=== PATIENT | female | born 1975 | race Caucasian/White ===

== ENCOUNTER → 2022-01-03 | Outpatient (CLI) | payer BC ==
--- NOTE | 2022-01-03 10:30 | Diagnostic Imaging Report ---
PROCEDURE: MRI left joint lower extremity without contrast. TECHNIQUE: Multiplanar, multisequence non contrast-enhanced MRI of the left lower extremity was accomplished. INDICATION: Posterior tibial tendinitis. COMPARISONS: None available. FINDINGS: TENDONS: Achilles is intact. Peroneus longus and brevis tendon are normal. Posterior tibialis tendon has mild tenosynovitis with thickening at its insertion on the navicular. The majority of the posterior tibialis tendon appears to remain intact. Anterior tibialis, extensor hallucis longus and extensor digitorum longus are intact. LIGAMENTS: Anterior and posterior distal tibiofibular ligaments are normal. Anterior talofibular, calcaneofibular and posterior talofibular ligaments are normal. The medial deltoid ligaments complex is intact. There is small amount of edema along the spring ligament which remains intact. BONES AND CARTILAGE: No osteochondral lesion of the talar dome. No fracture or stress fracture. The articular cartilage of the tibiotalar and posterior subtalar joints are normal. SOFT TISSUES: No evidence of plantar fasciitis. No abnormal soft tissue scar/fibrosis within the tarsal canal/sinus tarsi or tarsal tunnel. No ankle joint effusion. IMPRESSION: 1. Posterior tibialis tenosynovitis with mild tendinopathy at its distal insertion. There could be low-grade partial-thickness tearing at its distal insertion but no full-thickness tear. 2. Spring ligament remains intact but is mildly thickened which is often seen in the setting of stretching and partial tearing from acquired pes planus associated with posterior tibialis tendon insufficiency. Dictated by: Dictated on workstation # [id number]
== END ==
LOC: RAD 08:00
PROVIDERS: ATTEND Podiatrist Foot & Ankle Surgery
DX: M76.822 Posterior tibial tendinitis, left leg (principal)
CPT/HCPCS: 73721

== ENCOUNTER → 2022-02-03 | Outpatient (CLI) | payer BC ==
[~2022-02-03] VITALS: Ht 157.5 cm; Wt 97.7 kg
[~2022-02-03] MED LIST: CETI10CA PO; PARO7.5C PO; [UNRECOGNIZED DRUG - OTHER]
== END | disposition home or self-care (01) ==
LOC: PREOP 05:32
PROVIDERS: ATTEND Podiatrist Foot & Ankle Surgery
DX: Z01.818 Encounter for other preprocedural examination (principal)

== ENCOUNTER 2022-02-13 07:57 | Day surgery (SDC) | payer BC ==
[2022-02-13] VITALS (11 sets, daily range): BP systolic 103–145; BP diastolic 63–91
[~2022-02-13] VITALS: Ht 157 cm; Wt 97.7 kg
[2022-02-13] MEDS ORDERED: ceFAZolin INJECTION 1,000 MG VIAL IV ONE (08:15)
[2022-02-13] MEDS ORDERED: FAMOTIDINE 20MG/2ML IV (PEPCID) IV ONE (08:45)
[2022-02-13] MEDS ORDERED: ONDANSETRON 4 MG/2 ML (SDV) Z0FRAN IV ONE (08:45)
[2022-02-13] MEDS ORDERED: FAMOTIDINE 20MG/2ML IV (PEPCID) ONE (08:46)
[2022-02-13] MEDS ORDERED: ONDANSETRON 4 MG/2 ML (SDV) Z0FRAN ONE ×2 (08:46→08:54)
[2022-02-13] MEDS: LACTATED RINGERS 1,000 ML IV PRN ×2 (08:51→09:59)
[2022-02-13] MEDS ORDERED: fentaNYL INJ 100 MCG/2 ML AMP ONE (08:54)
[2022-02-13] MEDS ORDERED: LIDOCAINE PF 2% 5 ML (XYLOCAINE) VIAL ONE (08:54)
[2022-02-13] MEDS ORDERED: proPOfol 200 MG/20 ML (DIPRIVAN) VIAL IV ONE (08:54)
[2022-02-13] MEDS ORDERED: MIDAZOLAM 2 MG/2 ML (VERSED) VIAL ONE (08:54)
[2022-02-13] MEDS ORDERED: SEVOFLURANE (ULTANE) 15 ML INHAL SOLN ONE ×2 (08:54→10:27)
[2022-02-13] MEDS ORDERED: LIDOCAINE 1% INJ 20 ML VIAL ONE (08:57)
[2022-02-13] MEDS ORDERED: BUPIVACAINE 0.5% 30 ML (SENSORCAINE) VIAL ONE (08:57)
--- NOTE | 2022-02-13 09:16 | Progress Note-Pre Operative ---
Pre-Operative Progress Note H&P Reviewed The H&P was reviewed, patient examined and no changes noted. Date Seen by Provider: Feb 13, 2022 Time Seen by Provider: 09:16 Date H&P Reviewed: Feb 13, 2022 Time H&P Reviewed: 09:16 Pre-Operative Diagnosis: Posterior Tibial Tendon Tear, left JAVI PACHECO DPM Feb 13, 2022 09:16
[2022-02-13] MEDS ORDERED: PHENYLEPHRINE 100 MCG/ML 10 ML (ANESTHESIA) SYR ONE (10:02)
[2022-02-13] MEDS ORDERED: HYDROmorphone 2 MG/ML VIAL (DILAUDID) ONE (10:21)
[2022-02-13] MEDS ORDERED: KETOROLAC 30 MG/ML VIAL ONE (10:25)
[2022-02-13] MEDS ORDERED: ONDANSETRON 4 MG/2 ML (SDV) Z0FRAN IVP PRN (10:45)
[2022-02-13] MEDS ORDERED: HYDROmorphone 2 MG/ML VIAL (DILAUDID) IV ONE (10:45)
--- NOTE | 2022-02-13 10:54 | Progress Note-Post Operative ---
Post-Operative Progess Note Surgeon (s)/Software Manager (s) Surgeon JAVI PACHECO DPM Software Manager: none Pre-Operative Diagnosis Posterior Tibial Tendon Tear, left Post-Operative Diagnosis Same plus synovitis, left Procedure & Operative Findings Date of Procedure 02/13/22 Procedure Performed/Findings Tendon repair, Posterior Tibial with synovectomy, left Anesthesia Type General Estimated Blood Loss Estimated blood loss (mL): Minimal Specimens/Packing Specimens Removed none JAVI PACHECO DPM Feb 13, 2022 10:54
[2022-02-13] MEDS ORDERED: HYDROcodone/APAP 5 MG/325 MG (LORTAB) TAB PO PRN (11:00)
[2022-02-13] MEDS ORDERED: ACHD5005 PO (11:00)
[2022-02-13] MEDS ORDERED: LACTATED RINGERS 1,000 ML IV SCH (11:00)
--- NOTE | 2022-02-13 13:23 | Physical Therapy Ortho Eval ---
PT Orthopedic Evaluation Type of Surgery Posterior Tibial Tendon Tear, left Prior Level of Function Current Living Status: Spouse Locomotion (Upon Admit): Independent Established Durable Medical Eq: Crutches knee scooter Subjective Subjective Patient reports she has crutches and knee scooter at home Entry Into Home: Stairs With Railing Steps Into Home: 4 Transfer SCALE: Activities may be completed with or without assistive devices. 0-Uadkagvfqe-tgerjax completes the activity by him/herself with no assistance from a helper. 5-Set-up or Clean-up Assistance-helper sets up or cleans up; patient completes activity. [place] assists only prior to or following the activity. 4-Supervision or Touching Assistance-helper provides verbal cues and/or touching/steadying and/or contact guard assistance as patient completes activity. Assistance may be provided throughout the activity or intermittently. 3-Partial/Moderate Assistance-helper does LESS THAN HALF the effort. Seaton lifts, holds or supports trunk or limbs, but provides less than half the effort. 2-Substantial/Maximal Assistance-helper does MORE THAN HALF the effort. Seaton lifts or holds trunk or limbs and provides more than half the effort. 5-Gnhrpwxlf-dvybvp does ALL the effort. Patient does none of the effort to complete the activity. Or, the assistance of 2 or more helpers is required for the patient to complete the activity. If activity was not attempted, code reason: 7-Patient Refused. 9-Not Applicable-not attempted and the patient did not perform the activity before the current illness, exacerbation or injury. 10-Not Attempted due to Environmental Limitations-(lack of equipment, weather restraints, etc.). 88-Not Attempted due to Medical Conditions or Safety Concerns. Gait Gait Assistive Device: Crutches Right Lower Extremity: Right Weight Bearing Status RLE: Full Weight Bearing Left Lower Extremity: Left Weight Bearing Status LLE: Non Weight Bearing Distance (QC): 0=665-25 ft Distance: 75' Gait Level of Assist: 4 (CGA for safety) Summary/Comments Patient able to maintain NWB left LE Treatment Rendered Treatment: Gait Train, Step Train Assessment/Goals Goal Time Frame: 1 Visit Safe Ambulation: Yes Due to anesthesia and pain medication, Patient is CGA for safety with use of gait belt with gait and step training. Plan Treatment Plan: Discharge, Education, Gait, Safety Treatment Duration: evaluation Visits Per Week: 1 PT/Family Agrees to Plan: Yes Time Time In: 1300 Time Out: 1312 Total Billed Treatment Time: 12 Billed Treatment Time 1 visit [facility] 12 min ALYSON PERAZA PT Feb 13, 2022 13:23
--- NOTE | 2022-02-13 21:07 | OPERATIVE REPORT ---
DATE OF SERVICE: 02/13/2022 SURGEON: Vani Mccullough DPM. PREOPERATIVE DIAGNOSES: Partial tear of the posterior tibial tendon, left foot. POSTOPERATIVE DIAGNOSES: 1. Partial tear of the posterior tibial tendon, left foot. 2. Tenosynovitis. PROCEDURES PERFORMED: 1. Repair of the posterior tibial tendon. 2. Synovectomy left posterior tibial tendon. WOUND CLASS: Clean. ANESTHESIA: General. HEMOSTASIS: Pneumatic thigh tourniquet at 250 mmHg. INDICATIONS: This 46-year-old female presents complaining of a painful left foot. Conservative therapy is met with unsatisfactory results and the patient is agreeable to surgical intervention after risks and complications were discussed at length. No guarantees were extended to the patient and she is willing to proceed. DESCRIPTION OF PROCEDURE: The patient was brought back to the operating table, placed in secure supine position. A general anesthetic was then induced. Appropriate timeout was performed. Pneumatic thigh tourniquet was placed on the left lower extremity over several layers of padding. The left foot was then prepped and draped in normal sterile manner. The left foot was then elevated, allowed to exsanguinate after which the tourniquet was inflated to 250 mmHg. Attention was then directed to the medial aspect of the left foot where a curvilinear incision approximately 6 cm was created from the navicular tuberosity extending up proximally to the posterior medial malleolus area. The incision was deepened in the same plane with great care to identify and retract all vital neurovascular structures. Only necessary blood vessels were cauterized as encountered. The incision was deepened down to the posterior tibial tendon sheath where a careful dissection was applied along the tendon sheath, exposing some red, irritated tissue grossly described as tenosynovitis to the distal course of the posterior tibial tendon. There is a very minimal disruption and yellow discoloration to the distal course of the posterior tibial tendon on its most medial aspect on the inspection of the lateral aspect of the tendon just prior to its insertion to the navicular. There was no significant pathology. There was no rent identified medially. There is small lateral irritation to the tendon, with minimal longitudinal tear which was rasped for better attachment. The wound was flushed with copious amounts of normal saline. No other pathology was identified. There was a disruption in tendon sheath inferiorly, which extended to the other flexor tendon sheath. White glistening tendons were identified without any significant pathology identifiable. The wound was flushed with copious amount of normal saline. The tendon sheath was repaired with 3-0 Vicryl. The superficial closure was performed with 4-0 Vicryl and skin closure with 4-0 Prolene in a horizontal mattress type stitch. Postoperative injection consisted of 18 mL of 0.5% Marcaine plain injected in a local infusion to the surgical site. Postoperative dressing consisted of Betadine soaked Adaptic, sterile 4 x 4, sterile Kerlix, soft roll, ABDs and a posterior splint secured with Samir wraps. The patient tolerated the anesthesia and procedure well and was transported from the operating room to the recovery area with vital signs stable and vascular status intact to all digits of the left foot. She is to be nonweightbearing and follow up in my office in 10 days' period of time or sooner if necessary. Job ID: [id number] DocumentID: [id number] Dictated Date: 02/13/2022 11:07:06 Data Solutions Architect Date: 02/13/2022 21:07:29 Dictated By: ALISHA CHILDS
== END 2022-02-13 13:12 | disposition home or self-care (01) ==
LOC: SDC 07:57
PROVIDERS: ATTEND Podiatrist Foot & Ankle Surgery
DX: M65.9 Synovitis and tenosynovitis, unspecified (principal); S96.812A Strain of other specified muscles and tendons at ankle and foot level, left foot, initial encounter
CPT/HCPCS: 84703; 87081